=== PATIENT | female | born 1995 | race Caucasian/White ===

== ENCOUNTER 2017-02-28 18:57 | Emergency (ER) | payer MEDICAID, OTHER ==
[~2017-02-28] VITALS: Ht 160 cm; Wt 75.0 kg
[2017-02-28] MEDS ORDERED: SOD CHLORIDE 0.9% 500 ML IV STA (19:00)
[2017-02-28 19:06] VITALS: Ht 160 cm; Wt 75.0 kg
[2017-02-28] MEDS ORDERED: ACETAMINOPHEN 500 MG TAB ONE (19:33)
[2017-02-28] MEDS ORDERED: ACETAMINOPHEN 500 MG TAB PO STA (19:33)
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
[2017-02-28 20:08] LABS: CALCIUM 9.5 mg/dl (8.4-10.2); CREATININE 0.91 mg/dl (0.44-1.00)
[2017-02-28] MEDS ORDERED: IOHEXOL 100 ML ONE (20:25)
[2017-02-28] MEDS ORDERED: SOD CHLORIDE 0.9% 100 ML ONE (20:25)
--- NOTE | 2017-02-28 20:58 | RADRPT ---
PROCEDURE: CT angiogram of the neck. CLINICAL INDICATION: Altered level of consciousness. Neck pain and syncope. TECHNIQUE: Helical axial sections were obtained through the neck and upper chest during intravenou s injection of 95 ml of Omnipaque 350. Sagittal and coronal reformatted images were accomplished us ing the data from the axial images. In addition, 3-D post processing was performed. Total exam DLP is 473.76 mGy-cm. CTDIvol is 16.52 mGy. One or more of the following dose reduction techniques were used: Automated exposure control, adjustment of the mA and/or kV according to patient size, use of iterative reconstruction technique. COMPARISON: None available FINDINGS: The aortic arch appears unremarkable with no dissection. The right innominate artery, left common ca rotid artery, and left subclavian arteries are widely patent as the branch from the arch in a normal fashion. The right common carotid artery and right subclavian artery are also normal branches of th e right innominate artery. The bilateral vertebral arteries are widely patent bilaterally. The carotid bifurcation regions are normal. There is no plaque, stenosis, occlusion, or dissection. The bilateral internal carotid arteries are widely patent bilaterally. The visualized portion of the basilar artery is normal. The airway is intact. The lung apices are normal. The cervical spine is normal with no fracture, mal alignment, or lytic lesion IMPRESSION: 1. Normal CT angiogram of the neck. RPTAT: QQ .Jey Ramos MD, MD Date Time Electronically viewed and signed by .Jey Ramos MD, MD on 02/28/2017 20:58 .R/
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
[2017-02-28 22:04] VITALS: BP 130/81; PULSE 81; RESP 19; TEMP 98.1
== END 2017-02-28 22:05 | disposition home or self-care (01) ==
LOC: E/R 18:57
DX: S09.90XA Unspecified injury of head, initial encounter (principal); R55 Syncope and collapse; Y08.89XA Assault by other specified means, initial encounter
CPT/HCPCS: 70450; 70498; 80048; J7040; Q9967; Z7502; Z7610

== ENCOUNTER 2017-11-28 20:56 | Emergency (ER) | END 2017-11-29 01:50 | disposition left against medical advice (07) ==

== ENCOUNTER 2018-02-14 11:27 | Emergency (ER) | END 2018-02-14 12:56 | disposition home or self-care (01) ==

== ENCOUNTER 2018-02-15 16:12 | Emergency (ER) | END 2018-02-15 18:22 | disposition home or self-care (01) ==

== ENCOUNTER 2018-04-13 12:39 | Emergency (ER) | END 2018-04-13 13:50 | disposition home or self-care (01) ==

== ENCOUNTER 2018-06-06 17:57 | Emergency (ER) | payer MEDICAID ==
[~2018-06-06] VITALS: Ht 154.9 cm; Wt 71.0 kg
[~2018-06-06 17:57] MED LIST: BUTA1CAP38 PO; CEPH-443 PO; HYDR50TA15 PO; IBUP-1542 PO; IBUP800T48 PO; NAPR-985 PO; PRED20TA PO
[2018-06-06 18:01] VITALS: BP 118/69; PULSE 78; RESP 18; Ht 154.9 cm; Wt 71.0 kg
[2018-06-06] MEDS ORDERED: IBUP-1542 PO (18:59)
[2018-06-06] MEDS ORDERED: D-ME473S2 PO (18:59)
[2018-06-06] MEDS ORDERED: AZIT250T PO (18:59)
--- NOTE | 2018-06-06 19:01 | ERD ---
ER Documentation Chief Complaint Chief Complaint SORE THROAT WITH FEVERS X 3 WEEKS HPI 22-year-old female presents with sore throat, cough for last 3 weeks. She had fevers initially but those resolved. She has productive cough. She denies chest pain, vomiting, abdominal pain. ROS All systems reviewed and are negative except as per history of present illness. Medications Home Meds Active Scripts Ibuprofen* (Motrin*) 600 Mg Tab, 600 MG PO Q6, #15 TAB Prov:YAYA KINGSLEY MD 06/06/18 Dextromethorphan Hb-Promethazine Hcl* (Promethazine DM* Syrup) 473 Ml Syrup, 5 ML PO Q6 PRN for COUGH for 7 Days, ML Prov:YAYA KINGSLEY MD 06/06/18 Azithromycin* (Zithromax*) 250 Mg Tablet, 250 MG PO .ZPACK DIRECTED, #6 TAB TAKE 500 MG (2 TABS) THE FIRST DAY THEN 250 MG (1 TAB) DAYS 2-5 Prov:YAYA KINGSLEY MD 06/06/18 Ibuprofen* (Motrin*) 600 Mg Tab, 600 MG PO Q6, #20 TAB Prov:YAYA KINGSLEY MD 04/13/18 Cephalexin* (Keflex*) 500 Mg Capsule, 500 MG PO QID for 10 Days, CAP Prov:YAYA KINGSLEY MD 04/13/18 Ixoriqdphc-Jaoutjltmzlgx-Byrpjdye* (Fioricet*) 50-300-40 Mg Capsule, 1 CAP PO Q8, #30 CAP Prov:ARSEN VELA MD 02/15/18 Naproxen* (Naprosyn*) 500 Mg Tablet, 500 MG PO BID PRN for PAIN AND/OR INFLAMMATION, #30 TAB Prov:REBEKAH CASTRO PA-C 02/14/18 Prednisone* (Prednisone*) 20 Mg Tab, 40 MG PO DAILY for 4 Days, TAB Prov:REBEKAH CASTRO PA-C 02/14/18 Hydroxyzine Hcl* (Hydroxyzine Hcl*) 50 Mg Tablet, 50 MG PO Q6H PRN for ITCHING, #30 TAB Prov:YESI SANCHEZ 01/25/18 Cephalexin* (Keflex*) 500 Mg Capsule, 500 MG PO QID for 5 Days, CAP Prov:YESI SANCHEZ 01/25/18 Ibuprofen* (Motrin*) 800 Mg Tab, 800 MG PO Q6H PRN for PAIN AND OR ELEVATED TEMP, #30 TAB Prov:YESI SANCHEZ 01/25/18 Allergies Allergies: Coded Allergies: No Known Allergy (Unverified , 04/13/18) PMhx/Soc Medical and Surgical Hx: pt denies Medical Hx, pt denies Surgical Hx History of Surgery: No Anesthesia Reaction: No Hx Neurological Disorder: No Hx Respiratory Disorders: No Hx Cardiac Disorders: No Hx Psychiatric Problems: No Hx Miscellaneous Medical Probl: No Hx Alcohol Use: No Hx Substance Use: No Hx Tobacco Use: No Smoking Status: Never smoker FmHx Family History: No diabetes, No coronary disease, No other Physical Exam Vitals Vital Signs Date Temp Pulse Resp B/P (MAP) Pulse Ox O2 O2 Flow FiO2 Time Delivery Rate 06/06/18 98.4 78 18 118/69 99 18:01 (85) Physical Exam Const: No acute distress Head: Atraumatic Eyes: Normal Conjunctiva ENT: Normal External Ears, Nose and Mouth. Left TM shows yellow fluid and decreased light reflex. Postnasal drip. Tonsils 2+ with minimal erythema. Neck: Full range of motion. No meningismus. Resp: Clear to auscultation bilaterally Cardio: Regular rate and rhythm, no murmurs Abd: Soft, non tender, non distended. Normal bowel sounds Skin: No petechiae or rashes Back: No midline or flank tenderness Ext: No cyanosis, or edema Neur: Awake and alert Psych: Normal Mood and Affect Procedures/MDM She presents with URI symptoms for the last 3 weeks. She has signs of otitis media and postnasal drip. She will treated empirically given the duration for otitis media with Zithromax, promethazine DM, ibuprofen. She has no evidence of hypoxemia, rest or distress or signs of pneumonia on exam. The patient was stable with no new complaints during the ER course. Clinically, there is no current evidence to suggest meningitis, sepsis, acute abdomen, pneumonia, stro ke, acute coronary syndrome, pulmonary embolism, aortic dissection or any other emergent condition appearing to require further evaluation or hospitalization. Patient counseled regarding my diagnostic impression and care plan. Prior to discharge all questions answered. Pt agrees with treatment plan and understands strict return precautions. Pt is instructed to follow up with primary care provider within 24-48 hours. Precautionary instructions provided including instructions to return to the ER if not improving or for any worsening or changing symptoms or concerns. Departure Diagnosis: Primary Impression: URI, acute Additional Impression: Sore throat Condition: Stable Patient Instructions: Otitis Media, Abx Tx (Adult) Additional Instructions: Recheck for any worsening symptoms or with primary care doctor. YAYA KINGSLEY MD Jun 06, 2018 19:01
== END 2018-06-06 19:28 | disposition home or self-care (01) ==
LOC: FTE 17:57
DX: J06.9 Acute upper respiratory infection, unspecified (principal)
CPT/HCPCS: 99283

== ENCOUNTER 2018-12-17 13:01 | Emergency (ER) | payer MEDICAID, OTHER ==
[~2018-12-17] VITALS: Ht 157.5 cm; Wt 67.4 kg
[~2018-12-17 13:01] MED LIST changes: +AZIT250T PO; +D-ME473S2 PO
[2018-12-17 13:03] VITALS: Ht 157.5 cm; Wt 67.4 kg
[2018-12-17] MEDS ORDERED: ACET500C5 PO (14:13)
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
[2018-12-17 14:35] VITALS: BP 127/80; PULSE 70; RESP 18
== END 2018-12-17 14:36 | disposition home or self-care (01) ==
LOC: FTE 13:01
DX: R07.89 Other chest pain (principal)
CPT/HCPCS: 36415; 71045; 80048; 85025; 93005; Z7502